=== PATIENT | male | born 2000 | race Hispanic/Latino ===

== ENCOUNTER 2020-02-13 22:59 | Emergency (ER) | payer SELFPAY ==
[2020-02-13] MEDS ORDERED: HYDROmorphone 1 MG/1 ML INJ ONE ×3 (23:06→23:07)
[2020-02-13] MEDS ORDERED: SODIUM CHLORIDE 0.9% 1000 ML 1,000 ML ONE (23:08)
--- NOTE | 2020-02-13 23:09 | Emergency Department Report ---
Upper Extremity - HPI Chief Complaint: Extremity Injury, Upper Stated Complaint: LEFT HAND LACERATION Time Seen by Provider: 02/13/20 23:01 Upper Extremity: Left Hand, Left Thumb, Right Thumb Occurred When: Today Severity: severe Symptoms: Yes Pain with Movement, Yes Deformity, Yes Limited Range of Movement, Yes Swelling, Yes Laceration or Abrasion Other History: Patient is a 19-year-old male that presents emergency room with complaints of left hand pain. Patient states he was at work and a steel press came down on his left hand and crushed it. Patient states he got his hand caught and was unable to get it out. Patient states he is unable to move his hand due to pain. Patient states he has a severe deformity to his left hand. Patient states he is bleeding from his thumb because the pressure ripped his nail off. Patient does not know when his last tetanus was. Patient states the pain is 10 out of 10. Patient states the pain is worse with movement and better with rest. ED Review of Systems ROS: Stated complaint: LEFT HAND LACERATION Other details as noted in HPI Constitutional: denies: chills, fever Eyes: denies: eye pain, eye discharge, vision change ENT: denies: ear pain, throat pain Respiratory: denies: cough, shortness of breath, wheezing Cardiovascular: denies: chest pain, palpitations Endocrine: no symptoms reported Gastrointestinal: denies: abdominal pain, nausea, diarrhea Genitourinary: denies: urgency, dysuria Musculoskeletal: denies: back pain, joint swelling, arthralgia Skin: denies: rash, lesions Neurological: denies: headache, weakness, paresthesias Psychiatric: denies: anxiety, depression Hematological/Lymphatic: denies: easy bleeding, easy bruising ED Past Medical Hx - Past Medical History Previous Medical History?: No - Surgical History Past Surgical History?: No - Family History Family history: no significant - Social History Smoking Status: Never Smoker Substance Use Type: None Upper Extremity Exam - Exam General: Vital signs noted. No distress. Alert and acting appropriately. Head and Torso: No HEENT Abnormality, No Neck Tenderness, No Chest/Lungs Abnormality, No Abdominal Tenderness, No Back Tenderness Shoulder Exam: Yes Normal Range of Motion in Shoulder, No Shoulder Tenderness, No Clavicle Tenderness, No Shoulder Deformity, No AC Joint Tenderness Arm Exam: No Arm/Humerus Tenderness, No Arm Deformity Elbow: No Elbow Tenderness, No Normal Range of Motion in Elbow, No Elbow Deformity Forearm: No Forearm Tenderness, No Forearm Deformity, No Pain with Pronation, No Pain with Supination Wrist: Yes Normal ROM in Wrist, No Wrist Tenderness, No Wrist Deformity, No Snuffbox Tenderness, No Pain with Axial Thumb Compression Hand: Yes Hand Tenderness, Yes Hand Deformity, Yes Digit Tenderness, Yes Digit(s) Deformity, No Normal ROM in Digit(s) CMS Exam: No Broken Skin, No Normal Distal Pulses, No Normal Capillary Refill, No Normal Distal Sensation ED Course - Reevaluation(s) Reevaluation #1: Initial evaluation done. Code trauma called. Patient will have large-bore IV s tarted and given pain medication and fluids and a tetanus shot. 02/13/20 23:01 Reevaluation #2: I discussed all results and clinical findings with patient. I discussed plan of care with patient. Patient agrees with plan of care and transfer. Patient will be transferred to [facility]. 02/13/20 23:29 Reevaluation #3: Transport is here to transfer the patient. Patient states his pain is now an 8 out of 10. Patient has received multiple doses of Dilaudid. Patient is alert and oriented x4. Patient placed on 2 L of oxygen. 02/13/20 23:57 - Consultations Consultation #1: I discussed case with transfer center with [facility]. [facility] attending has accepted the patient, Dr. Zacarias. 02/13/20 23:26 ED Medical Decision Making - Lab Data Result diagrams: 02/13/20 23:12 - Radiology Data Radiology results: report reviewed, image reviewed interpreted by me: Left hand x-ray: Distal thumb fracture displaced. second, third, fourth, fifth metacarpal fracture displaced. Soft tissue swelling noted. No foreign body noted. EXAMINATION: Left hand radiograph, 2 views CLINICAL INFORMATION: Crush injury to the hand COMPARISON: None. FINDINGS: There are displaced slightly angulated fractures extending through the distal aspects of the second, third, fourth and fifth metacarpals with diffuse associated soft tissue swelling/soft tissue injury. There is also an oblique displaced fracture through the distal phalanx of the first digit. - Medical Decision Making Patient is a 19-year-old male who presents emergency room with complaints of left hand pain after getting his hand caught in a steel press at work. Patient complains of severe pain. Code trauma initiated after initial evaluation. Patient had x-ray which shows multiple fractures. Patient's fracture to his left thumb is an open fracture. Soft tissue swelling noted. Patient given a tetanus. Patient placed on fluids. Patient given multiple doses of Dilaudid in order to control his pain. [facility] was consulted early in the patient's stay and accepted the patient to be transferred to [facility]. Patient had labs done which were unremarkable. - Differential Diagnosis Hand trauma, fracture, contusion, laceration, nailbed damage. Critical Care Time: Yes Critical care time in (mins) excluding proc time.: 35 Critical care attestation.: If time is entered above; I have spent that time in minutes in the direct care of this critically ill patient, excluding procedure time. Critical Care Time: 35 minutes ED Disposition Clinical Impression: Hand crush injury Qualifiers: Encounter type: initial encounter Laterality: left Qualified Code(s): S67.22XA - Crushing injury of left hand, initial encounter Fracture of thumb Qualifiers: Encounter type: initial encounter Fracture type: open Phalanx: distal Fracture alignment: displaced Laterality: left Qualified Code(s): S62.522B - Displaced fracture of distal phalanx of left thumb, initial encounter for open fracture Fracture, metacarpal shaft Qualifiers: Encounter type: initial encounter Metacarpal bone: second Fracture type: closed Fracture alignment: displaced Laterality: left Qualified Code(s): S62.321A - Displaced fracture of shaft of second metacarpal bone, left hand, initial encounter for closed fracture Fracture of fourth metacarpal bone Qualifiers: Encounter type: initial encounter Fracture type: closed Metacarpal location: unspecified portion of metacarpal Fracture alignment: displaced Laterality: left Qualified Code(s): S62.305A - Unspecified fracture of fourth metacarpal bone, left hand, initial encounter for closed fracture Fracture of fifth metacarpal bone Qualifiers: Encounter type: initial encounter Fracture type: closed Metacarpal location: unspecified portion of metacarpal Fracture alignment: displaced Laterality: left Qualified Code(s): S62.307A - Unspecified fracture of fifth metacarpal bone, left hand, initial encounter for closed fracture Fracture of third metacarpal bone Qualifiers: Encounter type: initial encounter Fracture type: closed Metacarpal location: unspecified portion of metacarpal Fracture alignment: displaced Laterality: left Qualified Code(s): S62.303A - Unspecified fracture of third metacarpal bone, left hand, initial encounter for closed fracture Laceration of thumb with damage to nail Qualifiers: Encounter type: initial encounter Foreign body presence: without foreign body Laterality: left Qualified Code(s): S61.112A - Laceration without foreign body of left thumb with damage to nail, initial encounter Disposition: [id number]/TX-[id number] ANOTHER TYPE HLTHCARE Is pt being admited?: No Does the pt Need Aspirin: No Condition: Critical Time of Disposition: 23:45
[2020-02-13] MEDS ORDERED: HYDROmorphone 2 MG/1 ML INJ IV ONE ×4 (23:10→23:56)
[2020-02-13] MEDS ORDERED: SODIUM CHLORIDE 0.9% 1000 ML 1,000 ML IV ONE (23:10)
[2020-02-13] MEDS ORDERED: HYDROmorphone 1 MG/1 ML INJ IV ONE ×2 (23:14→23:18)
[2020-02-13] MEDS ORDERED: DIPHtheria,PERTUSSIS(ACELL),TETANUS VACCINE/PF 0.5 ML VIAL IM ONE (23:15)
[2020-02-13 23:38] LABS: Mean Corpuscular HGB Conc 37 % (32-34); Mean Corpuscular Volume 83 fl (84-94); Platelet Count 250 K/mm3 (140-440); Red Blood Count 5.13 M/mm3 (3.65-5.03); Red Cell Distribution Width 13.2 % (13.2-15.2)
--- NOTE | 2020-02-13 23:51 | XRay Report ---
EXAMINATION: Left hand radiograph, 2 views CLINICAL INFORMATION: Crush injury to the hand COMPARISON: None. FINDINGS: There are displaced slightly angulated fractures extending through the distal aspects of th e second, third, fourth and fifth metacarpals with diffuse associated soft tissue swelling/soft tissu e injury. There is also an oblique displaced fracture through the distal phalanx of the first digit. Signer Name: Beba Berumen MD Signed: 02/13/2020 5:45 PM Workstation Name: [id number]
[2020-02-13 23:53] LABS: Hematocrit 42.8 % (35.5-45.6); Hemoglobin 15.9 gm/dl (11.8-15.2)
[2020-02-14] MEDS ORDERED: HYDROmorphone 2 MG/1 ML INJ IV ONE (00:05)
[2020-02-14 00:09] LABS: Alanine Aminotransferase 24 units/L (7-56); Albumin 4.9 g/dL (3.9-5); BUN/Creatinine Ratio 11; Blood Urea Nitrogen 11 mg/dL (9-20); Calcium 9.9 mg/dL (8.4-10.2); Hemolysis Index 12
[2020-02-14 00:19] VITALS: BP 182/114
== END 2020-02-14 00:15 | disposition other institution (70) ==
LOC: ED 22:59
DX: S62.522B Displaced fracture of distal phalanx of left thumb, initial encounter for open fracture (principal); S62.321A Displaced fracture of shaft of second metacarpal bone, left hand, initial encounter for closed fracture; S62.305A Unspecified fracture of fourth metacarpal bone, left hand, initial encounter for closed fracture; S62.307A Unspecified fracture of fifth metacarpal bone, left hand, initial encounter for closed fracture; S62.303A Unspecified fracture of third metacarpal bone, left hand, initial encounter for closed fracture; S61.112A Laceration without foreign body of left thumb with damage to nail, initial encounter; S67.22XA Crushing injury of left hand, initial encounter; X58.XXXA Exposure to other specified factors, initial encounter; Y93.89 Activity, other specified; Y92.89 Other specified places as the place of occurrence of the external cause; Y99.8 Other external cause status
CPT/HCPCS: 36415; 73120; 80053; 85027; 86850; 86900; 86901; 90471; 90715; 96361; 96365; 96375; 96376; 99291; J0690; J1170; J7030